=== PATIENT | male | born 1955 | race American Indian/Alaskan Native ===

== ENCOUNTER 2019-08-19 22:11 | Emergency (ER) | payer OTHER ==
[2019-08-20] MEDS ORDERED: HYDROcodone/ACETAMINOPHEN 5-325 MG TAB PO ONE (02:39)
[2019-08-20] MEDS ORDERED: IBUPROFEN 800 MG TAB PO ONE (02:39)
[2019-08-20] MEDS ORDERED: CYCLOBENZAPRINE 10 MG TAB PO ONE (02:39)
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
[2019-08-20 06:05] VITALS: BP 128/78
== END 2019-08-20 04:00 | disposition home or self-care (01) ==
LOC: ED 22:11
DX: M62.830 Muscle spasm of back (principal); M25.511 Pain in right shoulder; M25.512 Pain in left shoulder; I10 Essential (primary) hypertension; Z79.899 Other long term (current) drug therapy; V49.49XA Driver injured in collision with other motor vehicles in traffic accident, initial encounter; Y93.89 Activity, other specified; Y92.410 Unspecified street and highway as the place of occurrence of the external cause; Y99.8 Other external cause status